=== PATIENT | male | born 1985 | race Caucasian/White ===

== ENCOUNTER 2018-06-18 12:06 | Emergency (ER) | payer MEDICAID, SELFPAY ==
[2018-06-18 12:43] VITALS: BP 146/92; PULSE 85; RESP 18; TEMP 37.1; O2SAT 98
--- NOTE | 2018-06-18 13:18 | W.ED.GENAD ---
Discharge Plan Disposition Patient Disposition: HOME Condition: Good Discharge Details Chief Complaint: DentalOral Clinical Impression: Dental infection Primary Care Provider: NONE,NONE ED Provider: Osmar Jenkins Home Meds and New Rx's Prescriptions: New amoxicillin 500 mg capsule 500 mg PO TID Qty: 30 RF: 0 oxycodone-acetaminophen [Percocet] 5-325 mg tablet 1 tab PO .QHS PRN (Reason: dental pain) Qty: 4 RF: 0 Discharge Instructions Instructions: Dental Abscess (ED) Referrals: [facility] Emergency Dept. [Outside] - Return if symptoms worsen Discharge Data Discharge Date/Time-TO BE ENTERED AT DEPARTURE: 06/18/18 13:38 Medical Decision Making Will prescribed Amoxicllin for the infection. Advised to f/u with dentist. Discussed risk versus benefits of opiate use for pain. I did prescribe 4 percocet for night time use only. Advised to return to PCP if no improvement and back to ED if symptoms worsen. HPI General Mode of arrival: ambulatory. Date/Time Provider Initiated Documentation: 06/18/18 13:12. Limitations to Documentation: no limitations. Information obtained by: patient. History of Present Illness 33 year old M presents to the emergency department with the chief complaint of dental pain, HPI Narrative: 33 y/o M with c/o dental pain. He explains he has a decayed tooth in the upper back left that is infected. The pain has worsened over the last 24 hours and now swelling. Denies any fever, chills, are problems swallowing. Related Data Home Medications Medication Instructions Recorded Confirmed amoxicillin 500 mg PO TID #30 cap 06/18/18 oxycodone-acetaminophen [Percocet] 1 tab PO .QHS PRN #4 tab 06/18/18 Previous Rx's Medication Instructions Recorded amoxicillin 500 mg PO TID #30 cap 06/18/18 oxycodone-acetaminophen [Percocet] 1 tab PO .QHS PRN #4 tab 06/18/18 Allergies Allergy/AdvReac Type Severity Reaction Status Date / Time Sulfa (Sulfonamide Allergy Unverified 06/18/18 12:43 Antibiotics) General Stated Complaint: DentalOral MATTHEW: 4 Review of Systems Constitutional Reports as per HPI ENT Reports dental pain Cardiovascular Reports system reviewed and no additional complaints, except as docu Respiratory Reports system reviewed and no additional complaints, except as docu Gastrointestinal Reports system reviewed and no additional complaints, except as docu [facility] Social History Smoking/Tobacco Use Status: Never Exam Const General: cooperative, comfortable and no acute distress HENMA Head: normal to inspection Ears: hearing grossly normal bilaterally, external ears normal and TM's normal bilaterally General nose exam: external nose normal and nares normal Face and sinus: sinuses nontender and no maxillary instability Face images: 1. Swelling noted no redness. Mouth: oral mucosae normal, oropharynx normal and moist mucous membranes Teeth and gingiva: gingiva normal and caries Teeth image: 1. Tooth decayed and cracked to the gum line. Swelling noted with no fluctuance or drainage. Root appears exposed. Throat: posterior oropharynx normal Eyes General: appearance normal, both eyes and all related structures Neck Neck: normal visual inspection, full ROM and no lymphadenopathy Resp Effort & Inspection: normal respiratory effort GI Inspection: normal to inspection Skin General skin exam: no rashes or lesions noted Neuro General: alert, awake and oriented x3 Gait: normal gait Psych Appearance: grossly normal Mental Status: mental status grossly normal Mood: congruent mood Affect: normal affect Course Vital Signs Temperature 37.1 C 06/18/18 12:43 Pulse 85 06/18/18 12:43 Respiratory Rate 18 06/18/18 12:43 Blood Pressure 146/92 H 06/18/18 12:43 Pulse Oximetry 98 06/18/18 12:43 Temperature 37.1 C 06/18/18 12:43 Temperature Source Temporal Artery Scan 06/18/18 12:43 Pulse 85 06/18/18 12:43 Respiratory Rate 18 06/18/18 12:43 Respiratory Effort 06/18/18 12:43 Blood Pressure 146/92 H 06/18/18 12:43 Blood Pressure Position Sitting 06/18/18 12:43 Pulse Oximetry 98 06/18/18 12:43 Oxygen Delivery Method Room Air 06/18/18 12:43 Oxygen Flow Rate 0 06/18/18 12:43 Pain Level 8 06/18/18 12:46
--- NOTE | 2018-06-18 13:21 | ED.GENADUL_ITS ---
Discharge Plan Disposition Patient Disposition: HOME Condition: Good Discharge Details Chief Complaint: DentalOral Clinical Impression: Dental infection Primary Care Provider: NONE,NONE ED Provider: Osmar Jenkins Home Meds and New Rx's Prescriptions: New amoxicillin 500 mg capsule 500 mg PO TID Qty: 30 RF: 0 oxycodone-acetaminophen [Percocet] 5-325 mg tablet 1 tab PO .QHS PRN (Reason: dental pain) Qty: 4 RF: 0 Discharge Instructions Instructions: Dental Abscess (ED) Referrals: [facility] Emergency Dept. [Outside] - Return if symptoms worsen Discharge Data Discharge Date/Time-TO BE ENTERED AT DEPARTURE: 06/18/18 13:38 Medical Decision Making Will prescribed Amoxicllin for the infection. Advised to f/u with dentist. Discussed risk versus benefits of opiate use for pain. I did prescribe 4 percocet for night time use only. Advised to return to PCP if no improvement and back to ED if symptoms worsen. HPI General Mode of arrival: ambulatory . Date/Time Provider Initiated Documentation: 06/18/18 13:12 . Limitations to Documentation: no limitations . Information obtained by: patient . History of Present Illness 33 year old M presents to the emergency department with the chief complaint of dental pain, HPI Narrative: 33 y/o M with c/o dental pain. He explains he has a decayed tooth in the upper back left that is infected. The pain has worsened over the last 24 hours and now swelling. Denies any fever, chills, are problems swallowing. Related Data Home Medications Medication Instructions Recorded Confirmed amoxicillin 500 mg PO TID #30 cap 06/18/18 oxycodone-acetaminophen [Percocet] 1 tab PO .QHS PRN #4 tab 06/18/18 Previous Rx's Medication Instructions Recorded amoxicillin 500 mg PO TID #30 cap 06/18/18 oxycodone-acetaminophen [Percocet] 1 tab PO .QHS PRN #4 tab 06/18/18 Allergies Allergy/AdvReac Type Severity Reaction Status Date / Time Sulfa (Sulfonamide Allergy Unverified 06/18/18 12:43 Antibiotics) General Stated Complaint: DentalOral MATTHEW: 4 Review of Systems Constitutional Reports as per HPI ENT Reports dental pain Cardiovascular Reports system reviewed and no additional complaints, except as docu Respiratory Reports system reviewed and no additional complaints, except as docu Gastrointestinal Reports system reviewed and no additional complaints, except as docu [facility] Social History Smoking/Tobacco Use Status: Never Exam Const General: cooperative, comfortable and no acute distress HENGA Head: normal to inspection Ears: hearing grossly normal bilaterally, external ears normal and TM's normal bilaterally General nose exam: external nose normal and nares normal Face and sinus: sinuses nontender and no maxillary instability Face images: 2 1. Swelling noted no redness. Mouth: oral mucosae normal, oropharynx normal and moist mucous membranes Teeth and gingiva: gingiva normal and caries Teeth image: 2 1. Tooth decayed and cracked to the gum line. Swelling noted with no fluctuance or drainage. Root appears exposed. Throat: posterior oropharynx normal Eyes General: appearance normal, both eyes and all related structures Neck Neck: normal visual inspection, full ROM and no lymphadenopathy Resp Effort & Inspection: normal respiratory effort GI Inspection: normal to inspection Skin General skin exam: no rashes or lesions noted Neuro General: alert, awake and oriented x3 Gait: normal gait Psych Appearance: grossly normal Mental Status: mental status grossly normal Mood: congruent mood Affect: normal affect Course Vital Signs Temperature 37.1 C 06/18/18 12:43 Pulse 85 06/18/18 12:43 Respiratory Rate 18 06/18/18 12:43 Blood Pressure 146/92 H 06/18/18 12:43 Pulse Oximetry 98 06/18/18 12:43 Temperature 37.1 C 06/18/18 12:43 Temperature Source Temporal Artery Scan 06/18/18 12:43 Pulse 85 06/18/18 12:43 Respiratory Rate 18 06/18/18 12:43 Respiratory Effort 06/18/18 12:43 Blood Pressure 146/92 H 06/18/18 12:43 Blood Pressure Position Sitting 06/18/18 12:43 Pulse Oximetry 98 06/18/18 12:43 Oxygen Delivery Method Room Air 06/18/18 12:43 Oxygen Flow Rate 0 06/18/18 12:43 Pain Level 8 06/18/18 12:46
[2018-06-18 13:36] VITALS: BP 133/80; PULSE 78; RESP 18; TEMP 36.8; O2SAT 99
== END 2018-06-18 13:38 | disposition home or self-care (01) ==
LOC: ER 13:41
PROVIDERS: Emergency Provider Nurse Practitioner Family
DX: K04.7 Periapical abscess without sinus (principal)
CPT/HCPCS: 99283

== ENCOUNTER 2020-06-30 16:08 | Outpatient (REF) | payer MEDICAID, SELFPAY ==
[2020-06-30 19:45] LABS: BUN 17 mg/dL (7-18); CREATININE 1.31 mg/dL (0.70-1.30); Calcium 9.2 mg/dL (8.5-10.1); Calculated LDL 155 mg/dL (<100); Chloride 103 mmol/L (98-107); Cholesterol 228 mg/dL (<200); Glucose 92 mg/dL (74-106); HDL Cholesterol 34 mg/dL (40-60); Potassium 4.2 mmol/L (3.5-5.1); Sodium 139 mmol/L (136-145); Triglyceride 197 mg/dL (<150)
== END 2020-06-30 16:28 ==
LOC: NCHCN 16:08
PROVIDERS: PCP Physician Assistant; Visit Provider Physician Assistant
DX: Z00.00 Encounter for general adult medical examination without abnormal findings (principal)
CPT/HCPCS: 80048; 80061

== ENCOUNTER 2022-01-05 17:25 | Outpatient (REF) | payer MEDICAID, SELFPAY ==
[2022-01-05 18:37] LABS: Anion Gap 9.7 mmol/L (3-11); BUN 13 mg/dL (7-18); CO2 25.3 mmol/L (21.0-32.0); CREATININE 1.1 mg/dL (0.70-1.30); Calcium 8.6 mg/dL (8.5-10.1); Calculated LDL 141 mg/dL (<100); Chloride 105 mmol/L (98-107); Cholesterol 204 mg/dL (<200); Glucose 94 mg/dL (74-106); HDL Cholesterol 38 mg/dL (40-60); Potassium 4.1 mmol/L (3.5-5.1); Sodium 140 mmol/L (136-145); Triglyceride 129 mg/dL (<150)
== END 2022-01-05 17:26 | disposition home or self-care (01) ==
LOC: NCHCN 17:25
PROVIDERS: PCP Physician Assistant; Visit Provider Physician Assistant
DX: E78.5 Hyperlipidemia, unspecified (principal)
CPT/HCPCS: 80048; 80061

== ENCOUNTER 2022-04-13 19:58 | Outpatient (REF) | payer MEDICAID, SELFPAY ==
[2022-04-13 11:58] LABS: Source Nasal/Nares
[2022-04-13 15:41] LABS: COVID-19 PCR Negative (Negative)
== END 2022-04-13 19:59 | disposition home or self-care (01) ==
LOC: LBN 19:58
PROVIDERS: PCP Physician Assistant; Visit Provider Urology
DX: Z20.822 Contact with and (suspected) exposure to COVID-19 (principal)
CPT/HCPCS: 87635

== ENCOUNTER 2022-04-30 11:48 | Outpatient (REF) | payer MEDICAID, SELFPAY ==
[2022-04-30 12:30] LABS: Source Nasal/Nares
[2022-04-30 15:35] LABS: COVID-19 PCR Negative (Negative)
== END 2022-04-30 11:49 | disposition home or self-care (01) ==
LOC: LBN 11:48
PROVIDERS: PCP Physician Assistant; Visit Provider Urology
DX: Z20.822 Contact with and (suspected) exposure to COVID-19 (principal); Z01.818 Encounter for other preprocedural examination
CPT/HCPCS: 87635

== ENCOUNTER 2022-05-03 05:59 | Day surgery (SDC) | payer MEDICAID, SELFPAY ==
[2022-05-03] VITALS (7 sets, daily range): BP systolic 100–128; BP diastolic 60–78; PULSE 69–82; RESP 14–18; TEMP 36–36.7; O2SAT 95–99; BMI 35.4
[2022-05-03] MEDS: Ciprofloxacin 500 MG TAB PO (06:40)
[2022-05-03] MEDS: Lactated Ringers 1,000 ML 80 ML IV (06:40)
--- NOTE | 2022-05-03 06:50 | W.PM.HP.N ---
Date of service: 05/03/22 Time of Service: 06:50 Assessment and Plan Assessment and plan (1) Phimosis: Assessment and plan: For circumcision History of Present Illness History of Present Illness Chief Complaint: Phimosis Narrative: Mandeep is a 36-year-old male referred to urology by his PCP for phimosis.? He states that he has had difficulty with retracting the foreskin for years.? He finds that his foreskin will rip with acts of intercourse.? He also is finding not only the difficulty retracting but pulling the foreskin back over the head of the penis is now getting difficult. He has never had the foreskin in the retracted position for an extended period of time to cause pain or circulation issues.? He reports never trying any type of cream or stretching to help with this matter.? He reports no chronic infection underneath the foreskin. Review of Systems Narrative: No fevers or chills Deviated septum. No vision change or dysphasia No diabetes or thyroid dysfunction No shortness of breath, cough or hemoptysis No chest pain or palpitations No nausea, vomiting, hepatitis, ulcers, jaundice No seizures, strokes or peripheral neuropathy No bleeding disorders or anemia No gout PFSH All Active Problems Deviated nasal septum (Acute) Nasal turbinate hypertrophy (Acute) Nasal obstruction (Acute) Tonsil stone (Acute) Tonsillar hypertrophy (Acute) Snoring (Acute) Medical History HLD (hyperlipidemia) Male infertility Phimosis Surgical History (Updated 05/03/22 @ 06:22 by Carley Philip) H/O nasal septoplasty Social History Smoking/Tobacco Use Status: Never Smoking risk assessment performed?: Yes Alcohol Intake: current Alcohol Intake frequency: holidays/special occasions only Drug use: Never Substance use type: does not use Additional Social history: unable to assess privatley Meds Allergies and Home Medications Allergies Allergy/AdvReac Type Severity Reaction Status Date / Time Sulfa (Sulfonamide Allergy Intermediate Other (See Unverified 05/03/22 06:10 Antibiotics) Comment) Home Medications Medication Instructions Recorded Confirmed Type Unknown [No Known Home Meds] 03/10/22 04/30/22 History Exam Const General: cooperative and comfortable Neck Neck: supple Resp Effort & Inspection: normal respiratory effort Auscultation: clear to auscultation bilaterally Cardio Rate: regular rate Rhythm: regular rhythm GI Inspection: normal to inspection Palpation: soft and no masses Neuro General: patient alert, patient awake and patient oriented x3 Results Last Vital Signs Temp 36.7 C 05/03/22 06:15 Pulse 79 05/03/22 06:15 Resp 18 05/03/22 06:15 BP 128/74 05/03/22 06:15 Pulse Ox 99 05/03/22 06:15
--- NOTE | 2022-05-03 07:00 | W.ANESPRE ---
General Info Date of Service Date Performed: 05/03/22 Height: 5 ft 7.5 in Weight: 104 kg Body Mass Index (BMI): 35.4 Surgical Procedure: Operation Date: 05/03/22 07:40 Proposed Procedure Side Surgeon p Circumcision Bridger Cao MD Meds Allergies and Home Medications Allergies Allergy/AdvReac Type Severity Reaction Status Date / Time Sulfa (Sulfonamide Allergy Intermediate Other (See Unverified 05/03/22 06:10 Antibiotics) Comment) Home Medication Medication Instructions Recorded Unknown [No Known Home Meds] 03/10/22 Current Visit Medications: Current Medications Generic Name Dose Route Start Last Admin Trade Name Freq PRN Reason Stop Dose Admin Ciprofloxacin HCl 500 mg 05/03/22 06:00 05/03/22 06:40 Ciprofloxacin 500 Mg Tab PO 05/03/22 16:00 500 mg PREOP ARPIT Administration Ringer's Solution 1,000 mls @ 80 mls/hr 05/03/22 06:00 05/03/22 06:40 IV 05/30/22 23:59 80 mls/hr INFUSION ARPIT Administration IV Miscellaneous Supplies 1 each 05/03/22 06:00 Iv Access IV 05/30/22 23:59 DIRECTED ARPIT Sodium Chloride 0 ml 05/03/22 06:00 Normal Saline Flush 10 Ml Syr IV 05/30/22 23:59 PRN PRN Sodium Chloride 0 ml 05/03/22 06:00 Normal Saline 10 Ml Vial IJ 05/30/22 23:59 DIRECTED PRN Sterile Water 0 ml 05/03/22 06:00 Water,Injection,Sterile 10 Ml Vial IJ 05/30/22 23:59 DIRECTED PRN PFSH Active Problems Active Problems: Problem Status Onset Code Deviated nasal septum J34.2 Nasal turbinate hypertrophy J34.3 Nasal obstruction J34.89 Tonsil stone J35.8 Tonsillar hypertrophy J35.1 Snoring R06.83 Medical History Medical History HLD (hyperlipidemia) Male infertility Phimosis Surgical History Surgical History (Updated 05/03/22 @ 06:22 by Carley Philip) H/O nasal septoplasty Tobacco Smoking/Tobacco Use Status: Never Alcohol Alcohol Intake: current Alcohol intake frequency: holidays/special occasions only Substance Use Substance use: Never Substance use type: does not use Vital Signs and Lab Results Vital Signs Most Recent Vital Signs in EMR: Most Recent Vital Signs Temp Pulse Resp BP Pulse Ox 36.7 C 79 18 128/74 99 05/03/22 06:15 05/03/22 06:15 05/03/22 06:15 05/03/22 06:15 05/03/22 06:15 Lab Results Blood Type / Crossmatch: No Data to Display Complete Blood Count: No Data to Display Complete Metabolic Panel: No Data to Display Liver Function Panel: No Data to Display Coagulation Panel: No Data to Display Cardiac Panel: No Data to Display Arterial Blood Gas: No Data to Display Venous Blood Gas: No Data to Display Pancreas Panel: No Data to Display Thyroid Panel: No Data to Display Infectious Disease: Coronavirus (COVID-19)(PCR) Negative (Negative) 04/30/22 09:45 Coronavirus 2019 Source Nasal/Nares 04/30/22 09:45 Blood Cultures: No Data to Display Toxicology Panel: No Data to Display Anesthesia Assessment and Plan Anesthesia History Personal History: No History of Anesthesia Complications Family History: Family History Unknown Exercise Tolerance Exercise Tolerance: Metabolic Equivalents>4 Pertinent Negatives Pertinent Negatives: No Symptoms of GERD, No Major Cardiovascular Symptoms or Complaints and No Major Pulmonary Symptoms or Complaints Cardiac & Pulmonary Exam Cardiac Exam: Normal S1/S2 Heart Sounds Pulmonary Exam: Clear Bilateral Breath Sounds Implantable Cardiac Device Does patient have a Pacemaker or an ICD?: No Airway Exam Known Difficult Airway: No Mallampati Class: 1 Mouth Opening: Normal (> 3cm) Thyromental Distance: Greater than 3 cm Facial Hair: Full Sagastume Neck Range of Motion: Full ROM Neck Circumference: Normal Teeth Condition: Normal Dentition (upper) and Removable Dentures/Plates Lower ASA Classification ASA Score: ASA 2 Emergency Case?: No NPO Status NPO Status: NPO Clears >2 hours, Solids >8 hours Anesthesia Plan Resuscitation Status: Full Code Anesthesia Technique: General Anesthesia Airway Planned: Natural Airway Monitors Used: Standard Monitors
[2022-05-03] MEDS: Bupivacaine 0.5% Pres-Free 30 ML VIAL (08:05)
--- NOTE | 2022-05-03 08:20 | W.PM.DSUDISC ---
Discharge Plan Disposition Patient Disposition: HOME Condition: Good Discharge Details Reason For Visit: Circumcision Attending Provider: Bridger Cao Primary Care Provider: Raúl Lane Home Meds and New Rx's Prescriptions: New tramadol 50 mg tablet 50 mg PO Q6H PRNQty: 10 0RF Discharge Instructions Additional Instructions: May shower or soak in tub in AM, then remove dressing (if it has not come off already) call office toward end of this week with progress report F/U appt 2 to 4 weeks Activity:: remain off work until 05/09 Remove Dressings/Wound Care:: 24 hours Shower/Bathe:: 24 hours Diet:: As Tolerated Discharge Orders Discharge Orders: Discharge Order (Routine); Ordered 05/03/22 Ordered By: Bridger Cao DS: Diagnosis Discharge Diagnosis (1) Phimosis:
--- NOTE | 2022-05-03 08:48 | W.PM.OP ---
Date of service: 05/03/22 Time of Service: 08:48 Operative Note Operative Note DATE OF PROCEDURE: 05/03/22 PRE-OP DIAGNOSIS: Phimosis POST-OP DIAGNOSIS: same PROCEDURE: Circumcision SURGEON: Bridger Cao ANESTHESIA TYPE: Local By Surgeon and General:No Airway Refer to Anesthesia Record ESTIMATED BLOOD LOSS: 25 PATHOLOGY: none sent COMPLICATIONS: None Patient was transported to: PACU Patient's condition: stable Implants: none Indications: This is a 37-year-old gentleman who has had progressive difficulty in retracting the foreskin. He describes some difficulty in bringing the foreskin back over the glans once it is retracted as well. He presents for circumcision Procedure Description: The patient was brought to the operating room on 05/03/2022. He was placed in the supine position. His genitalia was prepped. A dorsal penile nerve block was performed with quarter percent Marcaine without epinephrine. A penile ring block was performed as well. A circumferential incision was made on the outer aspect of the foreskin. This incision was made approximately at the level of the coronal sulcus. The foreskin was then retracted in a second incision was made on the inner aspect of the foreskin. This was done approximately 2 cm below the level of the coronal sulcus. The 2 incisions were then connected and the redundant foreskin was excised. Any bleeding points that were encountered were controlled using the Bovie. A large venous structure was tied with 3-0 Vicryl. The skin edges were then reapproximated with simple interrupted 4-0 chromic sutures. A Xeroflo dressing was applied to the wound. The patient tolerated the procedure well with no complications.
--- NOTE | 2022-05-03 09:26 | W.ANESPOSTOP ---
Postoperative Evaluation Date, Time and Location Date Performed: 05/03/22 Time Performed: 09:26 Patient Location: Day Surgery Unit Vital Signs Most Recent Imported Vital Signs: Most Recent Vital Signs Temp Pulse Resp BP Pulse Ox 36 C L 77 16 107/78 97 05/03/22 09:10 05/03/22 09:10 05/03/22 09:10 05/03/22 09:10 05/03/22 09:10 Pain Score Most Recent Pain Score: Most Recent Pain Score Pain Level 0 05/03/22 09:10 Assessment Mental Status: Awake (Alert & Oriented to Patient Baseline) Airway and Respiratory Function: Patent airway with normal (patient baseline) respiratory exam Cardiovascular Function: Hemodynamically Stable Hydration Status: Adequately Hydrated Nausea & Vomiting: No Nausea or Vomiting Pain: Pt. Denies Any Pain Peripheral Nerve Block: Patient did not receive a nerve block
== END 2022-05-03 11:00 | disposition home or self-care (01) ==
PROVIDERS: PCP Physician Assistant; Visit Provider Urology
PROC: 0VTTXZZ Resection of Prepuce, External Approach (ICD-10-PCS; CPT 54161; principal; 2022-05-03 07:30)
DX: N47.1 Phimosis (principal)
CPT/HCPCS: 54161; J1100; J1885; J2250; J2405; J3010